=== PATIENT | female | born 1965 | race Two or more races ===

== ENCOUNTER 2018-07-19 10:18 | Outpatient (CLI) | payer OTHER | END 2018-07-19 10:30 | disposition home or self-care (01) | LOC: MAMO-SONO 10:18 | DX: Z12.31 Encounter for screening mammogram for malignant neoplasm of breast (principal); N60.11 Diffuse cystic mastopathy of right breast; N60.12 Diffuse cystic mastopathy of left breast ==

== ENCOUNTER 2019-07-27 09:10 | Outpatient (CLI) | payer OTHER | END 2019-07-27 09:19 | disposition home or self-care (01) | LOC: MAMO-SONO 09:10 | DX: Z12.31 Encounter for screening mammogram for malignant neoplasm of breast (principal); Z87.898 Personal history of other specified conditions; N60.11 Diffuse cystic mastopathy of right breast; N60.12 Diffuse cystic mastopathy of left breast ==

== ENCOUNTER 2020-09-27 08:54 | Outpatient (CLI) | payer OTHER | END 2020-09-27 09:05 | disposition home or self-care (01) | LOC: MAMO-SONO 08:54 | PROVIDERS: ATTEND Specialist | DX: N60.02 Solitary cyst of left breast (principal); N60.11 Diffuse cystic mastopathy of right breast; N60.12 Diffuse cystic mastopathy of left breast ==

== ENCOUNTER 2020-10-12 09:31 | Outpatient (CLI) | payer OTHER | END 2020-10-12 09:57 | disposition home or self-care (01) | LOC: NUCLEAR 09:31 | PROVIDERS: ATTEND Specialist | DX: M81.0 Age-related osteoporosis without current pathological fracture (principal) ==

== ENCOUNTER 2021-06-28 08:00 | Outpatient (CLI) | payer OTHER | END 2021-06-28 08:30 | disposition home or self-care (01) | LOC: PPH VACUNA 08:00 | PROVIDERS: ATTEND Emergency Medicine Pediatric Emergency Medicine | DX: Z23 Encounter for immunization (principal) ==

== ENCOUNTER 2021-10-01 10:22 | Outpatient (CLI) | payer OTHER | END 2021-10-01 10:49 | disposition home or self-care (01) | LOC: MAMO-SONO 10:22 | PROVIDERS: ATTEND Specialist | DX: N60.11 Diffuse cystic mastopathy of right breast (principal); N60.12 Diffuse cystic mastopathy of left breast; Z12.31 Encounter for screening mammogram for malignant neoplasm of breast ==

== ENCOUNTER 2022-06-13 10:25 | Outpatient (CLI) | payer OTHER | END 2022-06-13 10:30 | disposition home or self-care (01) | LOC: PPH VACUNA 10:25 | PROVIDERS: ATTEND Emergency Medicine Pediatric Emergency Medicine | DX: Z23 Encounter for immunization (principal) ==

== ENCOUNTER 2022-09-30 12:18 | Outpatient (CLI) | payer OTHER | END 2022-09-30 12:23 | disposition home or self-care (01) | LOC: MAMO-SONO 12:18 | PROVIDERS: ATTEND Specialist | DX: N60.11 Diffuse cystic mastopathy of right breast (principal); N60.12 Diffuse cystic mastopathy of left breast ==

== ENCOUNTER 2022-10-13 13:37 | Outpatient (CLI) | payer OTHER | END 2022-10-13 13:42 | disposition home or self-care (01) | LOC: NUCLEAR 13:37 | PROVIDERS: ATTEND Specialist | DX: M81.0 Age-related osteoporosis without current pathological fracture (principal) ==

== ENCOUNTER 2023-01-13 09:27 | Outpatient (CLI) | payer OTHER | END 2023-01-13 09:37 | disposition home or self-care (01) | LOC: RAD 09:27 | PROVIDERS: ATTEND Internal Medicine | DX: I10 Essential (primary) hypertension (principal) ==

== ENCOUNTER 2023-03-06 10:02 | Outpatient (CLI) | payer OTHER | END 2023-03-06 10:31 | disposition home or self-care (01) | LOC: SONOGRAMA 10:02 | PROVIDERS: ATTEND Internal Medicine | DX: K76.0 Fatty (change of) liver, not elsewhere classified (principal) ==

== ENCOUNTER 2023-10-06 09:20 | Outpatient (CLI) | payer OTHER | END 2023-10-06 09:29 | disposition home or self-care (01) | LOC: MAMO-SONO 09:20 | PROVIDERS: ATTEND Specialist | DX: N60.11 Diffuse cystic mastopathy of right breast (principal); N60.12 Diffuse cystic mastopathy of left breast ==

== ENCOUNTER 2024-11-10 08:52 | Outpatient (CLI) | payer OTHER | END 2024-11-10 09:00 | disposition home or self-care (01) | LOC: MAMO-SONO 08:52 | PROVIDERS: ATTEND Specialist | DX: Z12.39 Encounter for other screening for malignant neoplasm of breast (principal); Z12.31 Encounter for screening mammogram for malignant neoplasm of breast ==

== ENCOUNTER 2024-11-10 10:04 | Outpatient (CLI) | payer OTHER | END 2024-11-10 10:05 | disposition home or self-care (01) | LOC: NUCLEAR 10:04 | PROVIDERS: ATTEND Specialist | DX: M81.0 Age-related osteoporosis without current pathological fracture (principal) ==

== ENCOUNTER 2025-09-17 07:19 | Emergency (ER) | payer OTHER ==
[~2025-09-17] VITALS: Ht 149.9 cm; Wt 77.1 kg
[2025-09-17] MEDS ORDERED: BENZONATATE 200 MG CAPSULE PO ONE (08:00)
[2025-09-17] MEDS ORDERED: BUTALB/ACETAMINOPHEN/CAFFEINE 1 TAB TABLET PO ONE ×2 (08:00→08:41)
[2025-09-17 09:16] LABS: BASO % 0.8 % (0.1-1.2); EOS # 0.01 (0.04-0.54); EOS % 0.2 % (0.7-7.0); LYMPH # 1.18 (1.18-3.74); LYMPH % 18.1 % (19.3-53.1); MEAN PLATELET VOLUME 9.90 fl (9.4-12.4); MONO # 0.52 (0.24-0.82); MONO % 8.0 % (4.7-12.5); NEUT # 4.75 (1.56-6.13); NEUT % 72.6 % (34.0-71.1); RED CELL DISTRIBUTION WIDTH 13.0 % (11.6-14.4)
[2025-09-17 10:40] LABS: COVID-19 AG NEGATIVE (NEGATIVE)
[2025-09-17] MEDS ORDERED: PEPCID AC20 MG PO (11:09)
[2025-09-17] MEDS ORDERED: OSEL75CA PO (11:09)
== END 2025-09-17 12:19 | disposition home or self-care (01) ==
LOC: ER 07:19
PROVIDERS: General Practice
DX: J10.1 Influenza due to other identified influenza virus with other respiratory manifestations (principal); R51.9 Headache, unspecified; R05.8 Other specified cough; I10 Essential (primary) hypertension; Z20.822 Contact with and (suspected) exposure to COVID-19